=== PATIENT | male | born 1955 | race Caucasian/White ===

== ENCOUNTER 2024-08-31 09:20 | Outpatient (REF) | payer MEDICARE, MEDICAID, SELFPAY ==
--- OUTSIDE RECORDS SUMMARY | 2024-08-31 10:13 | XMS_ITS | Encounter Summary ---
Author Organization [employer] Address [address] [facility] [address] [place] [address] Care Team Providers Care Director Of Music Name Role Phone Unavailable Primary Care Provider Unavailabl e Reason for Visit * Reason Onset Date Comments medical clearance 12/17/2023 Encounter Details Date Type Department Care Team (Late Contact Info) Description 12/17/[address] [facility] [address] [place], [place] [phone] Oleg Ricketts BDS [address] [place], [place] [phone] medical clearance Social History Tobacco Use Types Packs/Day Years Used Date Smoking Tobacco: Former Cigarettes Smokeless Tobacco: Never Sex and Gender Information Value Date Recorded Sex Assigned at Male 11/13/2023 11:46 AM EDT Legal Sex Male 11:44 AM EDT Gender Identity Male 11/13/2023 11:46 AM EDT Sexual Orientation Straight 11/13/2023 11 :46 AM EDT documented as of this encounter Miscellaneous Notes * Telephone Encounter - Dejah Pak - 12/17/2023 11:20 AM EDT [facility] primary care called to state that doctor would send over medical clearance when done with current patient. Patient was schedules at [facility] for 11:00 Call came in al 11:18. Sherrill at front office coordinator is aware that medical clearance will not make it in time. DR documented in this encounter Plan of Treatment Upcoming Encounters Date Type Department Care Team (Late Contact Info) Description 09/01/2024 1:30 PM EST Office Visit [facility] [address] [place], [place] [phone] Leonardo Dickerson, SANTOS [address] [place], [place] [phone] documented as of this encounter Visit Diagnoses Not on filedocumented in this encounter
--- OUTSIDE RECORDS SUMMARY | 2024-08-31 10:13 | XMS_ITS | Encounter Summary ---
Author Organization [employer] Address [address] [facility] [address] [place] [address] Care Team Providers Care Record Filing Clerk Name Role Phone Unavailable Primary Care Provider Unavailabl e Encounter Details Date Type Department Care Team (Late st Contact Info) Description 07/21/2024 Telephone [facility] AD[facility] DENTAL [address] [place] [address] Oleg Ricketts BDS [address] [place], [place] [phone] Social History Tobacco Use Types Packs/Day Years Used Date Smoking Tobacco: Former Cigarettes Smokeless Tobacco: Never Sex and Gender Information Value Date Recorded Sex Assigned at Male 11/13/2023 11:46 AM EDT Legal Sex Male 11:44 AM EDT Gender Identity Male 11/13/2023 11:46 AM EDT Sexual Orientation Straight 11/13/2023 11 :46 AM EDT documented as of this encounter Plan of Treatment Upcoming Encounters Date Type Department Care Team (Late st Contact Info) Description 09/01/2024 1:30 PM EST Office Visit [facility] [address] [place], [place] [phone] Leonardo Dickerson, SANTOS [address] [place] [address] documented as of this encounter Visit Diagnoses Not on filedocumented in this encounter
--- OUTSIDE RECORDS SUMMARY | 2024-08-31 10:13 | XMS_ITS | Encounter Summary ---
Author Organization [employer] Address [address] [facility] [address] [place] [address] Care Team Providers Care Investment Trader Name Role Phone Unavailable Primary Care Provider Unavailabl e Reason for Visit * Reason Onset Date Comments Appointment 04/28/2024 Encounter Details Date Type Department Care Team (Late Contact Info) Description 04/28/2024 Telephone [facility] [address] [place], [place] [phone] Oleg Ricketts BDS [address] [place], [place] [phone] Appointment Social History Tobacco Use Types Packs/Day Years Used Date Smoking Tobacco: Former Cigarettes Smokeless Tobacco: Never Sex and Gender Information Value Date Recorded Sex Assigned at Male 11/13/2023 11:46 AM EDT Legal Sex Male 11:44 AM EDT Gender Identity Male 11/13/2023 11:46 AM EDT Sexual Orientation Straight 11/13/2023 11 :46 AM EDT documented as of this encounter Miscellaneous Notes * Telephone Encounter - Zoie Subramanian - 04/28/2024 12:18 PM EDT Please call pt he stated that he was supposed to get another appt today and said that someone theretold him they will call him today and he's just waiting on a call. Needs appt time before hand so he can call transportation company. CS thank you documented in this encounter Plan of Treatment Upcoming Encounters Date Type Department Care Team ([facility] Contact Info) Description 09/01/2024 1:30 PM EST Office Visit [facility] [address] [place], [place] [phone] Leonardo Dickerson, SANTOS [address] [place], [place] [phone] documented as of this encounter Visit Diagnoses Not on filedocumented in this encounter
--- OUTSIDE RECORDS SUMMARY | 2024-08-31 10:13 | XMS_ITS | Data Portability ---
Author Organization [facility], Main Office Address [address] [facility], [facility] [address] [place] [address] Care Team Providers Care Snake Charmer Name Role Phone DAVID PATTEN Primary Care Provider [facility] ([facility]) OTHER SORAIDA CASTILLO OTHER TAHIR RASMUSSEN OTHER Assessment No assessment recorded. Plan of Treatment Reminders Order Date Submit Date Provider Last Modified By Organization Details Last Modified Time Details Appointments None record ed. Lab None record ed. Referral None record ed. Procedures None record ed. Surgeries None record ed. Imaging None record ed. Medication Orders None record ed. Patient TargetsNo targets recorded. Patient Instructions Encounter Date Encounter Id Patient Instructions Last Modified By Organization Details Last Modified Time 09/27/2021 [id number] Needs PCV20 and then pneumococcal vaccines will be complete per CDC guidelines Weights highly erratic - validity questionable and does not clinically correlate to addition of fiberglass cast [email or web address] Not available 10/02/2021 20:07:39 10/16/2021 [id number] Total time spent 15 minutes, >50% in [id number]-[id number] counseling and coordination of care. Not available 10/20/2021 18:49:06 11/02/2021 [id number] F/U Appointments : PCP: Dr. David Patten, telehealth visit on November 08, 2021 at 0950 Ortho: Dr. Soraida Castillo -- needs f/u mid-November 2021 for x-rays Total time spent on discharge: 40 minutes No scripts needed Script and paperwork for shower stool (pt has clawfoot tub that won't fit a bench) completed yesterday and given to rehab department [email or web address] Not available 11/02/2021 10:29:15 Reason for Referral None Reported. Problems Name Problem SNOMED Code Status Onset Date Resolution Date Notes Provider Name and Address Organization Details Recorded Time Recurrent falls 771534715 Active 2021 BRIA AGUAYO PA-C [address], [address], [place], [address], [facility] [employer] [facility] 2 12:55:22 Rhabdomyol ysis 720674564 Active 2021 BRIA AGUAYO PA-C [address], [address], [place], [address], [facility] [employer] 2 12:55:29 Chronic kidney disease stage 3 599207191 Active 2021 BRIA AGUAYO PA-C [address], [address], [place], [address], [facility] 2 12:55:36 Alcohol dependence 36825555 Active 2021 BRIA AGUAYO PA-C [address], [address], [place], [address], [employer] [facility] 2 12:55:46 Closed fracture of ankle 97844042 Active 2021 BRIA AGUAYO PA-C [address], [address], [place], [address], [employer] [facility] 2 12:56:20 Clostridiu m difficile colitis 215353040 Active 2021 BRIA AGUAYO PA-C [address], [address], [place], [address], [facility] 2 12:56:32 Persistent atrial fibrillati on 996053435 Active 2021 on Eliquis BRIA AGUAYO PA-C [address], [address], [place], [address], [facility] 2 12:56:48 Gastroesop hageal reflux disease without esophagiti s 071926164 Active 2021 BRIA AGUAYO PA-C [address], [address], [place], [address], [facility] 2 12:56:59 Hypertensi ve disorder 66250148 Active 2021 BRIA AGUAYO PA-C [address], [address], [place], [address], [facility] [employer] 2 12:57:05 Osteoarthr itis 741701814 Active 2021 bilateral knees and L foot BRIA AGUAYO PA-C [address], [place], [address], [facility] [employer] [facility] 2 12:57:23 Chronic systolic heart failure 720966716 Active 2021 BRIA AGUAYO PA-C [address], [place], [address], [employer] [facility] 2 12:57:37 Cobalamin deficiency 325578067 Active 2021 BRIA AGUAYO PA-C [address], [place], [address], [facility] 2 12:57:45 Liver enzymes level above reference range 918893413 Active 2021 BRIA AGUAYO PA-C [address], [place], [address], [facility] 2 12:58:08 Infestatio n by bed bug 91283779 Active 2021 BRIA AGUAYO PA-C [address], [place], [address], [facility] [facility] 2 12:58:30 Problem Notes None recorded. Medical Equipment None Reported. Allergies Allergen ID Allergen Name Allergen Category Reaction Reaction Severity Criticality Documentation Date Start Date Code Code System Note Provider Name and Address Organization Details Recorded Time 41774 hydrochlo rothiazid e medicatio n Not available Not available Not available 08/29/2021 5468 RxNorm hypon atrem ia Not Available Not Available Not Available Medications Not known to be on any medication Vitals Date Recorded Body height Body mass index (BMI) Body weight Body temperature Heart rate Respiratory rate Oxygen saturation Oxygen saturation in Arterial blood by Pulse oximetry Systolic blood pressure Diastolic blood pressure Provider Name and Address Organization Details Last Updated DateTime 2 179.83 cm 36.9 kg/m2 507143. 79 g 97.1 [degF] 90 /min 16 /min 96 % 96 % 97 mm[Hg] 69 mm[Hg] BRIA AGUAYO PA-C [address], [place], [address], [facility] 2 19:40:26 Date Recorded Body height Body temperature Respiratory rate Oxygen saturation Oxygen saturation in Arterial blood by Pulse oximetry Systolic blood pressure Diastolic blood pressure Provider Name and Address Organization Details Last Updated DateTime 2 179.83 cm 97.5 [degF] 20 /min 95 % 95 % 112 mm[Hg] 87 mm[Hg] BRIA AGUAYO PA-C [address], [place], [address], [facility] 2 10:36:31 Date Recorded Body height Body temperature Heart rate Respiratory rate Oxygen saturation Oxygen saturation in Arterial blood by Pulse oximetry Systolic blood pressure Diastolic blood pressure Provider Name and Address Organization Details Last Updated DateTime 2 179.83 cm 97.3 [degF] 73 /min 18 /min 96 % 96 % 139 mm[Hg] 47 mm[Hg] BRIA AGUAYO PA-C [address], [place], [address], [facility] 2 13:51:35 Date Recorded Body height Body temperature Oxygen saturation Oxygen saturation in Arterial blood by Pulse oximetry Heart rate Systolic blood pressure Diastolic blood pressure Systolic blood pressure Diastolic blood pressure Systolic blood pressure Diastolic blood pressure Provider Name and Address Organization Details Last Updated DateTime 2 179.83 cm 97.3 [degF] 97 % 97 % 80 /min 142 mm[Hg] 94 mm[Hg] 138 mm[Hg] 94 mm[Hg] 112 mm[Hg] 87 mm[Hg] Martina Malloy MD [address], [place], [address], [facility] 2 05:38:49 Date Recorded Body height Body temperature Heart rate Respiratory rate Oxygen saturation Oxygen saturation in Arterial blood by Pulse oximetry Body mass index (BMI) Body weight Systolic blood pressure Diastolic blood pressure Provider Name and Address Organization Details Last Updated DateTime 2 179.83 cm 97.3 [degF] 66 /min 18 /min 94 % 94 % 30.1 kg/m2 21389.9 2 g 130 mm[Hg] 88 mm[Hg] BRIA AGUAYO PA-C [address], [address], [place], [address], [facility] 2 09:58:07 Social History Question Answer Notes LastModified by Organizat ion Details LastModified Time Tobacco Smoking Status Former Smoker quit 25 years ago BRIA AGUAYO PA-C [address], [address], [place], [address], [facility] 08/29/2021 11:07:05 Do You Have An Advance Directive? Yes Full Code; All Interventions [email or web address] Information not available 08/29/2021 What Is Your Level Of Alcohol Consumption? Heavy Sec 35 -03/2021; Hx DTs; At Least 4 Scotches Per Day [email or web address] Information not available 08/29/2021 How Many Times Per Week Do You Consume Alcohol? 5-7 Times Per Week [email or web address] Information not available 08/29/2021 How Many Years Have You Consumed Alcohol? 40 [email or web address] Information not available 08/29/2021 What Is Your Code Status? Full Code Information not available 08/29/2021 Legal Guardian? No Informati on not available 08/29/2021 Do You Have A Medical Power Of Clinical Data Abstractor? No [email or web address] Information not available 08/29/2021 What Was The Date Of Your Most Recent Tobacco Screening? [email or web address] Information not available 08/29/2021 Do You Have An Out Of Hospital DNR? No Information not available 08/29/2021 Have You Ever Been Counseled For Unhealthy Alcohol Use? Yes [email or web address] Information not available 08/29/2021 Do You Use Any Illicit Or Recreational Drugs? No [email or web address] Information not available 08/29/2021 Has Tobacco Cessation Counseling Been Provided? No N/A [email or web address] Information not available 08/29/2021 Do You Or Have You Ever Used Any Other Forms Of Tobacco Or Nicotine? No [email or web address] Information not available 08/29/2021 Sex: Unknown Functional Status None recorded. Mental Status None recorded. Family History Nothing Reported Notes:EtOH Medical History No medical history recorded. Immunizations Vaccine Type Date Status Note Provider Nam e and Address Organization Details Recorded Time COVID-19, mRNA, LNP-S, PF, 30 mcg/0.3 mL dose 1 completed BRIA AGUAYO PA-C [address], [place], [address], [facility] 08/29/2021 11:00:55 Influenza, split virus, quadrivalent, preservative 1 completed BRIA AGUAYO PA-C [address], [place], [address], [facility] 08/29/2021 11:09:14 pneumococcal, unspecified formulation 9 completed BRIA AGUAYO PA-C [address], [place], [address], [facility] 08/29/2021 11:09:32 COVID-19, mRNA, LNP-S, PF, 30 mcg/0.3 mL dose 1 completed BRIA AGUAYO PA-C [address] [facility], [address], [place], [address], [facility] 08/29/2021 11:09:43 COVID-19, mRNA, LNP-S, PF, 30 mcg/0.3 mL dose 1 completed BRIA AGUAYO PA-C [address] [facility], [address], [place], [address], [facility] 08/29/2021 11:09:48 Pneumococcal conjugate PCV20, polysaccharide [id number] conjugate, adjuvant, PF 2 completed Not Available [facility] 10/12/2022 03:01:35 Influenza, adjuvanted, quadrivalent, PF 2 completed Rocio mcnair, [facility] 09/05/2023 12:57:10 Influenza, adjuvanted, quadrivalent, PF 3 completed Rocio mcnair, [facility] 09/05/2023 12:57:24 Past Encounters Encounter ID Performer Location Encounter Start Date Encounter Closed Date Diagnosis/Indication Diagnosis SNOMED-CT Code Diagnosis ICD10 Code Diagnosis Note [id number] BRIA AGUAYO PA-C [facility] on [address] [place] [address] 08/29/2021 09:54:09 09/12/2021 15:25:30 Closed fracture of ankle 51242096 S82.91XD Pt needs ortho f/u with Dr. Soraida Castillo in ~2 weeks for f/u R ankle fxNWB RLEPrn APAP -- hesitant to schedule it since hx transamini tis Clostridiu m difficile colitis 495850433 A04.72 Need stop date for vanc- 09/05/21 Infestatio n by bed bug 01317463 B88.8 No evidence of acute infection/ bites.Clar inga if needs belongings bagged - defer to infection prevention Persistent atrial fibrillation 745197958 I48.19 Rate-contr olledOn full anticoagul ation with EliquisCon tinue ASA since was on d/c summary but there was a reference to discontinu ing it due to fallsCheck Dig level Recurrent falls 44674329 2 R29.6 PT/OT Rhabdomyolysis 995633993 M62.82 secondary to fall with prolonged down timeResolv ed Osteoarthritis 705964999 M19.90 Diclofenac 1% gel 4 g each knee qid-ok despite CKD III, was on per PCPLidocai ne 4% patch daily to each kneePT/OT Hypertensive disorder 38 837925 I10 Monitor BPs and adjust meds prn Gastroesop hageal reflux disease without esophagitis 461721365 K21.9 Change Protonix to PrilosecPt has GI f/u 09/12/21 at 1500 at [address] [facility], 2nd floor [place] with Bre Orozco NP-will need to be reschedule d if still here Liver enzy mes level above reference range 480388028 R74.01 Likely secondary to EtOHCautio n with hepatotoxi c meds Cobalamin deficiency 190 709580 E53.8 Not on supplement -defer to PCP Chronic sy stolic heart failure 439396449 I50.22 Compensate dOk to continue Lasix despite HCTZ ADR - has been tolerating Monitor divalents, renal function, and Mg Chronic ki dney disease stage 3 997768860 N18.30 Improved s/p tx AKICaution with nephrotoxi c meds Alcohol dependence 70640 003 F10.20 Prior Sec 35Not interested in acamprosat e or naltrexone Substance use d/o counseling Advance care planning 71 1293298 Z71.89 Met with pt, who is his own decision-choco theodore, in his room. Reviewed MOLST he completed last night. Reviewed each section and answered questions to his satisfacti on. He did not wish to revise anything. Form completed, and signed. Full code, all interventi ons. Total time spent 18 minutes [id number] Martina Malloy MD [facility] on [address] [place] [address] 08/30/2021 06:17:02 09/01/2021 11:19:22 Closed fracture of ankle 10601714 S82.91XD NWBfu orthoAPAP 650 mg q6h prnPT/OT Alcohol dependence 36234 003 F10.20 encourage sobrietyMV I daily social work associate to help provide multidisci plinary supportwil l monitor Clostridiu m difficile colitis 437593320 A04.72 oral vancomycin 125 mg q6h through 09/05/21wil l monitor Chronic co mbined systolic and diastolic heart failure 3730769596 41883 I50.42 furosemide 20 mg dailycarve dilol 3.125 mg bidwill monitorfu cardiology Gastroesop hageal reflux disease without esophagitis 721042593 K21.9 omeprazole 40 mg dailywill monitorpan toprazole 40 mg daily through 09/04/21 Persistent atrial fibrillation 629129808 I48.19 carvedilol 3.125 mg bid for rate controlapi xaban 5 mg biddigoxin 0.125 mg dailywill monitor [id number] BRIA AGUAYO PA-C [facility] on [address] [place] [address] 09/08/2021 11:06:46 09/13/2021 15:22:34 Closed fracture of ankle 74132891 S82.91XD ortho f/u with Dr. Soraida Castillo in 1 week for repeat x-ray and evalcontin ue NWB RLEPrn APAPPT/OT Clostridiu m difficile colitis 111312606 A04.72 Finished Vanc 3 days agoClinica lly resolvedOf f precaution s Chronic sy stolic heart failure 543792215 I50.22 Compensate dDivalents , Mg, renal function ok on diureticf/ u prn [id number] BRIA AGUAYO PA-C [facility] on [address] [place] [address] 09/27/2021 09:39:23 10/03/2021 16:11:49 Closed fracture of ankle 71736905 S82.91XD Persistent atrial fibrillation 412568791 I48.19 Rate-contr olledOn full anticoagul ation with EliquisThe rapeutic dig level [id number] BRIA AGUAOY PA-C [facility] on [address] [place] [address] 10/13/2021 19:12:56 10/19/2021 12:51:59 Closed fracture of ankle 88766661 S82.91XD PT eval and tx as indicated for R ankle fx-ok for PWB to FWB and ROMf/u ortho 11/22/21 at 0945 for x-ray and 1015 for ortho [id number] BRIA AGUAYO PA-C [facility] on [address] [place] [address] 10/16/2021 21:55:31 10/23/2021 16:10:23 Pain of right ankle joint 9944021350 4436362 M25.571 s/p fx Explained to pt that NSAIDs are contraindi cated in CKD and that they can exacerbate GERD symptoms. Also explained the increased risk of bleeding when NSAIDs are coadminist ered with ASA and Eliquis and the increased risk of acute kidney injury when coadminist ered with Lasix. Pt expressed understand ing after he was informed that these were the reasons Motrin would not be ordered. Continue APAP. Monitor and f/u prn [id number] Martina Malloy MD [facility] on [address] [place] [address] 10/25/2021 05:32:05 10/27/2021 13:03:22 Closed fracture of ankle 53934023 S82.91XD WBAT, now with canefu orthoAPAP 650 mg q6h prncontinu e PT/OT Alcohol dependence 00551 003 F10.20 encourage sobrietyMV I daily social work associate to help provide multidisci plinary supportwil l monitor Persistent atrial fibrillation 100087019 I48.19 carvedilol 3.125 mg bid for rate controlapi xaban 5 mg biddigoxin 0.125 mg dailywill monitor Essential hypertension 56688981 I10 carvedilol 3.235 mg bidfurosem linnea 20 mg dailywill monitor Gastroesop hageal reflux disease without esophagitis 596512216 K21.9 omeprazole 40 mg dailywill monitor Chronic sy stolic heart failure 967410210 I50.22 furosemide 20 mg dailycarve dilol 3.125 mg bidwill monitor [id number] BRIA AGUAYO PA-C [facility] on [address] [place] [address] 11/02/2021 09:55:43 11/06/2021 13:33:11 Closed fracture of ankle 67560392 S82.91XD Healing well per orthoWBATP T/OT Clostridiu m difficile colitis 282067535 A04.72 Resolved Recurrent falls 23531319 2 R29.6 PT/OT Persistent atrial fibrillation 584241459 I48.19 Rate-contr olledOn full anticoagul ation with EliLida rapeutic dig level Health Concerns Section Related Observation LastModified by Organization Detai ls LastModified Time None Recorded Concern Status LastModified by Organization Details LastModified Time None Recorded Advance Directives Directive Y: Full code; all interventi ons Payers Encounter Date Sequence Insurance Name Policy Number Policy Wilson Covered Member ID Wilson Member ID Guarantor Name 09/27/2021 1 [place] [employer] Jose Chaves [id number] Jose Chaves 09/27/2021 2 [place] [facility] Jose Chaves [id number] Jose Chaves 10/13/2021 1 [place] [employer] Jose Chaves [id number] Jose Chaves 10/13/2021 2 [place] [facility] Jose Chaves [id number] Jose Chaves 10/16/2021 1 [place] [employer] Jose Chaves [id number] Jose Chaves 10/16/2021 2 [place] [facility] Jose Chaves [id number] Jose Chaves 10/25/2021 1 [place] [facility] Jose Chaves [id number] Jose Mayfieldmarilee 10/25/2021 2 [place] [facility] Jose Chaves [id number] Jose Chaves 11/02/2021 1 [place] [facility] Jose Chaves [id number] Jose Chaves 11/02/2021 2 [place] [facility] Jose Chaves [id number] Jose Chaves Notes Date Note Type Note Provider Name and Address Organization Details Recorded Time 09/27/2021 text/html Pt seen today fo r routine rounding visit. 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 Castillo. Returned with recommendation to continue NMB and to f/u again 1 week for repeat x-ray09/08/21: Seen for f/u ortho. Pt has no complaints. No issues with pain. Staff report he has been doing well. BRIA AGUAYO PA-C [address] [place] [address], [address], [place], [address], [facility] 10/02/2021 20:34:17 10/13/2021 text/html Pt seen today fo r acute rounding visit for R ankle fx. Pt here for the above. Saw ortho (Anna) 2 days ago for f/u. Cast was removed. He returned with recommendation for PT for partial weight bearing then full weight bearing and ROM. Needs to return to ortho in 6 weeks for f/u x-ray. Pt has no complaints. Has been working with rehab. BRIA AGUAYO PA-C [address] [facility], [address], [place], [address], [facility] 10/17/2021 22:21:38 10/16/2021 text/html Pt seen for acut e rounding visit today for R ankle pain. Pt here for R ankle fx. Has been asking nurse for Motrin. Ankle hurting a little more now that he has been ambulating with walker with rehab. PMHx relevant for: CKD III with hx NATACHA; GERD Meds reviewed and include:ASA 81 mg po q amLasix 20 mg po q amEliquis 5 mg po bid BRIA AGUAYO PA-C [address] [facility], [address], [place], [address], [facility] 10/20/2021 18:50:14 10/25/2021 text/html This 65 year old male rehab patient at [facility] is seen today for routine rounding visit. Medical history is remarkable for alcohol use disorder with section 35 January-Mar 2021, followed by 4+ months sobriety, history of recurrent alcohol withdrawal and DTs, history of multiple traumatic injuries, dilated ascending aorta 4.4 cm, history HFrEF, now with preserved EF on ECHO October 2020, afib, hypertension, OA Patient was admitted to [facility] on 08/28/21 after hospitalization. He presented to ER on 08/22/21. Patient reported that his knees gave out . He fell to floor and was unable to get up due to both weakness as well as pain in his right ankle and left toe. He developed some blisters on his skin from crawling around. He estimated that he was down for several hours but wasn't entirely sure. Patient eventually called out to one of his tenants in the duplex who alerted EMS. He had taken none of his prescribed medications that day In ER on 08/22/21, patient was noted to be in afib with pulse in 120s. Labs were notable for high anion gap metabolic acidosis with bicarb of 22 with initial lactate 5.9. Patient had NATACHA with creatinine up to 1.3 from baseline on 0.8. CK was 1384 and troponin indeterminate at 0.04. He was given dose of vancomycin and Zosyn for possible cellulitis overlying knees and he was treated for alcohol withdrawal with lorazepam. CT of head of 08/22/21 showed no acute process. CXR was negative. Right ankle xray showed fracture of distal fibula at level of mortise with trace posterolateral displacement of distal fragment. There also appeared to be nondisplaced fracture of tip of fibula and slight lateral shift of talus relative to tibia and extensive lateral soft tissue swelling. Left foot xray showed OA of first MTP, but no acute abnormalities. Knee xrays showed degenerative changes but no acute fractures. Hospital course was remarkable for some signs of alcohol withdrawal and he was treated with lorazepam with CIWAs improved. NATACHA improved with hydration. Metabolic acidosis with lactic acidoses likely related to alcohol as well as prolonged down time improved with IV fluids. Patient was started on high dose thiamine for concern for Wernicke's. Ortho recommended short posterior splint and NWB with outpatient fu in 2 weeks. Patient had some loose stools and was found to be positive for cdiff. He was started on oral vancomycin on 08/27/21. It was recommended that he continue vancomycin until after 48 hours of solid stools (approximately 10 days). PT recommended STR. Patient has been participating in PT and OT at [facility]. Patient saw ortho in follow up on 10/11/21 and partial weight bearing recommended and then weight bearing with ROM. Follow up recommended in another 6 weeks. He is now walking in halls with walker independently. Today patient is standing in his room holding a cane in his left hand. He is pleased with his progress. He says that he just starting using the cane. MOLST: full code - signed 08/28/21 Martina Malloy MD [address] [place] [address], [address], [place], [address], [facility] [employer] 10/25/2021 10:34:30 11/02/2021 text/html Pt seen today fo r discharge. Admit Date: 08/28/21 Discharge/Service Date: 11/02/21 for 11/03/21 discharge Principle Discharge Diagnosis: Falls; Hx acute rhabdo and R ankle fx secondary to mechanical fall 08/2021; Acute c-diff colitis s/p vanc Secondary Discharge Diagnoses: EtOH use d/o with hx w/d; CKD III with hx NATACHA; Persistent A-fib; Dilated ascending aortic aneurysm 4.4 cm; GERD; HTN; Acute c-diff colitis 08/2021; Hx basal cell ca; OA bilateral knees; Hx colon polyps; Hepatic steatosis; Hx multiple rib fx; Class I obesity; Hx pancytopenia; Chronic systolic CHF; B12 def; Transaminitis; Hx acute bed bug infestation 08/2021; Heart M; Hx traumatic SDH; 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 Pepe Thakkar/Bria Aguayo PA-C Medications Started at [facility]: Diclofenac gel; Lidocaine patch; Tamiflu for prophyaxis Medications Discontinued at [facility] & Why: Vancomycin (completed course); Tamiflu (completed course); Lidocaine patch (pt felt ineffective) Dose Changes: none Med changes prior to admit at [facility]: Oral vanc added Discharge Medication List:ASA 81 mg po q amDigoxin 125 mcg po q amLasix 20 mg po q amPrilosec 40 mg po q amCoreg 3.125 mg po bidEliquis 5 mg po bidDiclofenac 1% gel 4 g each knee q 4 h prn pain, NTE 32 g/d PCP Head? s Up: none Post-Acute Summary: Admitted for subacute rehab for R ankle fracture. Was initially NWB. Saw ortho -- fiberglass splint changed to cast. Had serial ortho visits and x-rays and was ultimately deemed to not require surgical intervention. Approved for partial weight-bearing and ultimately for WBAT. Participated and progressed with PT/OT (see their discharge summaries for details.) Completed po Vanc for c-diff and had no further episodes of diarrhea. Vitals monitored and stable. Never required more than APAP for pain control. Completed a course of Tamiflu prophylaxis for confirmed Influenza A on the unit. Discharging home tomorrow with VNA. Home Health Certification: Dx as above; Seen this am by [facility]-registered Bria Aguayo PA-C NPI# [id number]; Last MD visit 10/25/21; [facility] for medication management and reconciliation and teaching; PT: home exercise program for gait training and increasing muscle strength and needs home environment assessment to determine need for assistive devices; OT for increased independence with ADLs; Home-bound due to needs assistance to navigate uneven sidewalks and curbs and needs two hands for rolling walker. Consultants Involved: ortho Tests/Labs Needing to be Ordered or Followed by PCP: per PCP discretion Services Ordered at Discharge: [facility]; [facility] (Evi Connolly, Care Advisor [phone]) for meals on wheels and housekeeping. General: in bed in NAD; appears comfortable Skin: p/w/d HEENT: pink and moist mucous membranes Neck: supple without thyromegaly/adenopat hy Lungs: CTA without wheezes/rales/rhonch i Heart: RRR without M Abd: soft, NT, ND with normoactive BS Ext: no edema Diet: regular, thin liquids Activity: ok to WBAT RLE Pt feels well. No significant pain. Excited to be discharging home tomorrow. BRIA AGUAYO PA-C [address] [place] [address], [address], [place], [phone], [facility] 11/02/2021 10:30:17
--- OUTSIDE RECORDS SUMMARY | 2024-08-31 10:13 | XMS_ITS | Clinical Summary ---
Author Organization [employer] Address [address] [facility] [address] [place] [address] Care Team Providers Care Field Coordinator Name Role Phone Unavailable Primary Care Provider Unavailabl e Allergies Active Allergy Reactions Criticality Noted Date Comments Hydrochlorothiazide Unknown 11/14/2023 Medications Eliquis 5 MG tablet Take 5 mg by mouth 2 times daily. 10/26/2023 Active digoxin (Lanoxin) 125 MCG tablet Take 125 mcg by mouth Once per day. 09/09/2023 Active folic acid (Folvite) 1 MG tablet Take 1,000 mcg by mouth Once per day. 10/31/2023 Active Tiadylt ER 240 MG 24 hr capsule Take 240 mg by mouth Once per day. 10/17/2023 Active pantoprazole (ProtoNix) 40 MG EC tablet Take 40 mg by mouth Once per day. 03/21/2023 Active cyanocobalamin (Vitamin B-12) 1000 MCG tablet Take 1,000 mcg by mouth Once per day. Active atorvastatin (Lipitor) 40 MG tablet Take 40 mg by mouth Once per day. Active metoprolol succinate XL (Toprol-XL) 25 MG 24 hr tablet Take 25 mg by mouth Once per day. Active Active Problems No known active problems Encounters Date Type Department Care Team Description 07/30/2024 9:30 AM EST Office Visit [facility] [address] [place] [id number] Leonardo Dickerson DMD 07/21/2024 Telephone [facility] [address], [place] [phone] Oleg Ricketts BDS 06/23/2024 1:30 PM EST Office Visit [facility] [address] [place] [address] [phone] Leonardo Dickerson DMD from Last 3 Months Social History Tobacco Use Types Packs/Day Years Used Date Smoking Tobacco: Former Cigarettes Smokeless Tobacco: Never Tobacco Cessation:Counseling Given: Not Answered Sex and Gender Information Value Date Recorded Sex Assigned at Male 11/13/2023 11:46 AM EDT Legal Sex Male 11:44 AM EDT Gender Identity Male 11/13/2023 11:46 AM EDT Sexual Orientation Straight 11/13/2023 11 :46 AM EDT Last Filed Vital Signs Vital Sign Reading Time Taken Comments Blood Pressure 136/82 04/28/2024 11:05 AM EDT Pulse 74 11/14/2023 11:18 AM EDT Temperature - - Respiratory Rate - - Oxygen Saturation - - Inhaled Oxygen Concentration - - Weight - - Height - - Body Mass Index - - Plan of Treatment Upcoming Encounters Date Type Department Care Team (Late st Contact Info) Description 09/01/2024 1:30 PM EST Office Visit [facility] [address] [place] [address] [phone] Leonardo Dickerson, DMD [address], [place] [phone] Health Maintenance Due Date Last Done Comments CT Colonography 1955 Colonoscopy 1955 Colorectal Cancer Screening 1955 Dental Prophylaxis 1955 Dental X-Ray: Bitewings 1955 Depression Screening 1955 FIT DNA/Cologuard 1955 FIT 1955 FOBT 1955 Lipid Panel 1955 SDOH Screening 1955 Sigmoidoscopy 1955 Alcohol/Substance Use Screening 1967 Hepatitis C Screening 10/27/1973 Hepatitis A Vaccines (1 of 2 - Risk 2-dose series) 10/27/1974 Hepatitis B Vaccines (1 of 3 - Risk 3-dose series) 2015 RSV Patients and Patients Aged 60 years or older (1 - Risk 60-74 years 1-dose series) 2015 Zoster Vaccines (2 of 2) 07/26/2020 05/31/2020 Dental Oral Exam 05/17/2024 11/14/2023 Tobacco Screening 07/30/2025 07/30/2024 Dental X-Ray: Full Mouth 11/14/2026 11/14/2023 DTaP/Tdap/Td Vaccines (3 - Td or Tdap) 08/29/2029 08/29/2019, 01/18/2018 Pneumococcal Vaccine: 50+ Years Completed 05/17/2022, 10/03/2021, 09/11/2018, Additional history exists COVID-19 Vaccine Completed 03/18/2024, , 02/08/2022, Additional history exists Influenza Vaccine Completed 03/18/2024, , 03/26/2023, Additional history exists HIB Vaccines Aged Out No longer eligi ble based on patient's age to complete this topic HPV Vaccines Aged Out No longer eligi ble based on patient's age to complete this topic IPV Vaccines Aged Out No longer eligi ble based on patient's age to complete this topic Meningococcal Vaccine Aged Out No blu noris eligible based on patient's age to complete this topic RSV under 20 months Aged Out No longe r eligible based on patient's age to complete this topic Rotavirus Vaccines Aged Out No longer eligible based on patient's age to complete this topic Procedures Procedure Name Priority Date/Time Associated Diagnosis Comments DENTURE IMPRESSION Routine 07/30/2024 9: 30 AM EST NO CHARGE VISIT Routine 06/23/2024 1:30 PM EST PANORAMIC RADIOGRAPHIC IMAGE Routine 11/14/2023 11:00 AM EDT COMPREHENSIVE ORAL EVALUATION - NEW OR ESTABLISHED PATIENT Routine 11/14/2023 11:00 AM EDT from Last 3 Months or Most Recently Relevant to Health Maintenance Insurance DENTAL - [facility] FULL (MEDICAID) # 1 [place] [address]
--- OUTSIDE RECORDS SUMMARY | 2024-08-31 10:13 | XMS_ITS | Encounter Summary ---
Author Organization [employer] Address [address] [facility] [address] [place] [address] Care Team Providers Care Sales And Marketing Analyst Name Role Phone Unavailable Primary Care Provider Unavailabl e Reason for Visit * Reason Onset Date Comments scheduling for tomorrow 04/28/2024 Encounter Details Date Type Department Care Team (Late Contact Info) Description 04/28/2024 Telephone [facility] [address] [place] [address] Oleg Ricketts BDS [address] [place] [address] [phone] scheduling for tomorrow Social History Tobacco Use Types Packs/Day Years [...] * Telephone Encounter - Dejah Pak - 04/28/2024 3:43 PM EDT Patient was in here today and some teeth and had stitches put in. He states he was told that he hadto come in tomorrow to get stitches removed and do upper extractions as well. He states he hasn't been able to get in touch with office and needs to know what time he needs to come in tomorrow because he does have to book transportation. There is currently nothing scheduled. Please reach out to patient DR documented in this encounter Plan of Treatment Upcoming Encounters Date Type Department Care Team (Late Contact Info) Description 09/01/2024 1:30 PM EST Office Visit [facility] [address] [place] [address] Leonardo Dickerson, SANTOS [address] [place], [place] [phone] documented as of this encounter Visit Diagnoses Not on filedocumented in this encounter
--- OUTSIDE RECORDS SUMMARY | 2024-08-31 10:13 | XMS_ITS | Clinical Summary ---
Author Organization [address] [place] [address] Address [address] [place] [phone] Phone Care Team Providers Care Tooling Specialist Name Role Phone David Patten MD Primary Care Provider Social History Tobacco Use Types Packs/Day Years Used Date Smoking Tobacco: Never Assessed Sex and Gender Information Value Date Recorded Sex Assigned at Not on file Legal Sex Male 10:06 AM EST Gender Identity Not on file Sexual Orientation Not on file Plan of Treatment Upcoming Encounters Date Type Department Care Team ([facility] Contact Info) Description 11/03/2024 9:15 AM EDT Consult Orthopedic Surgery [facility] [address] [phone] Zeke Emery, DPM [address] [phone] Health Maintenance Due Date Last Done Comments DTaP,Tdap,and Td Vaccines (1 - Tdap) 10/27/1974 Pneumococcal Vaccine: 50+ Ye ars (1 of 1 - PCV) 10/27/2005 Zoster Vaccines (1 of 2) 10/27/2005 COVID-19 Vaccine ( - 2023-2 5 season) 2024 Influenza Vaccine (#1) 2024 Abdominal Aortic Aneurysm (A AA) Screen 08/27/2024 Cholesterol Screening (Lipid Panel) 08/27/2024 Colorectal Cancer Screening: Colonoscopy 08/27/2024 Depression Screening 08/27/2024 Falls Risk Assessment 08/27/2024 Hepatitis C Screening 08/27/2024 Medicare Annual Wellness Visit 08/27/2024 Social Influencers of Health Screening 08/27/2024 RSV Immunization Patients 60 + Years Old (1 - 1-dose 75+ series) 10/27/2030 HIB Vaccines Aged Out No longer eligi ble based on patient's age to complete this topic HPV Vaccines Aged Out No longer eligi ble based on patient's age to complete this topic Hepatitis A Vaccines Aged Out No long er eligible based on patient's age to complete this topic Hepatitis B Vaccines Aged Out No long er eligible based on patient's age to complete this topic IPV Vaccines Aged Out No longer eligi ble based on patient's age to complete this topic MMR Vaccines Aged Out No longer eligi ble based on patient's age to complete this topic Meningococcal ACWY Vaccine Aged Out N o longer eligible based on patient's age to complete this topic Meningococcal B Vacine Aged Out No lo nger eligible based on patient's age to complete this topic RSV Immunization Patients Un lowell 20 months Aged Out No longer eligible b ased on patient's age to complete this topic Varicella Vaccines Aged Out No longer eligible based on patient's age to complete this topic Insurance MEDICARE MEDICAID - [place] Care Teams Tooling Specialist Relationship Specialty Start Date End Date David Patten MD [address] [place] [phone] PCP - General Internal Medicine 08/27/24
[2024-08-31 10:48] LABS: MANUAL DIFF FLAG NO
[2024-08-31 10:56] LABS: Basophils Percent Auto 0.4 % (0-2); Eosinophils Percent Auto 0.9 % (0-4); Hematocrit 34.8 % (42.0-52.0); Hemoglobin 10.2 g/dl (14.0-18.0); Imm Gran Abs Auto 0.02 X10*3/uL (0.00-0.03); Imm Gran Pct Auto 0.4 % (0.0-0.4); Lymphocytes Absolute Auto 0.6 X10*3/uL (1.2-4.9); Lymphocytes Percent Auto 13.5 % (20-40); Mean Corpuscular HGB Conc 29.3 g/dl (31.0-36.0); Mean Corpuscular Hemoglobin 24.6 pg (27.0-33.0); Mean Corpuscular Volume 84.1 fL (80.0-98.0); Mean Platelet Volume 10.1 fL (9.4-12.4); Monocytes Absolute Auto 0.4 X10*3/uL (0.1-1.2); Monocytes Percent Auto 7.6 % (2-11); Neutrophils Absolute Auto 3.5 x10*3/uL (2.0-8.3); Neutrophils Percent Auto 77.2 % (45-73); Platelet Count 203 X10*3/uL (160-400); Red Blood Count 4.14 X10*6/uL (4.60-5.80); Red Cell Distribution Width 18.2 % (11.0-16.0); White Blood Count 4.6 X10*3/uL (4.8-10.8)
[2024-08-31 11:10] LABS: Lactic Acid 0.7 mmol/L (0.5-2.0)
[2024-08-31 13:19] LABS: Anion Gap 13 (12-20); Blood Urea Nitrogen 19 mg/dL (9-16); Calcium 9.2 mg/dL (8.4-10.2); Carbon Dioxide 24 mmol/L (22-29); Chloride 107 mmol/L (96-108); Estimated Glomerular Filt Rate > 60; Glucose Random 93 mg/dL (60-115); Potassium 4.9 mmol/L (3.3-5.1); Sodium 139 mmol/L (135-145)
== END 2024-08-31 09:21 | disposition home or self-care (01) ==
LOC: HO.WFDLDS 09:20
PROVIDERS: PCP Internal Medicine; Visit Provider Internal Medicine
DX: F10.239 Alcohol dependence with withdrawal, unspecified (principal); I10 Essential (primary) hypertension; I48.20 Chronic atrial fibrillation, unspecified
CPT/HCPCS: 36415; 80048; 82010; 83605; 85025